=== PATIENT | male | born 1955 | race Caucasian/White ===

== ENCOUNTER 2016-11-20 16:40 | Emergency (ER) | payer OTHER ==
[~2016-11-20] VITALS: Ht 172.7 cm; Wt 72.6 kg
[~2016-11-20 16:40] MED LIST: AMLODIPINE BESYL5 M1 PO; COLACE100 M1 PO; DIAZEPAM5 M1 PO; ELIQUIS5 M1 PO; GABAPENTIN300 MG PO; HYDROCODONE/ACE1 TAB PO; HYZAAR 12.5 MG-1 TA1 PO; IBU600 MG PO; LAMICTAL100 M2 PO; LEVOTHYROXIN0.088 M1 PO; LIPITOR40 M1 PO; LORAZEPAM0.5 MG PO; MELOXICAM15 M1 PO; METFORMIN500 MG PO; MORPHINE SULFAT15 M3 PO; OLANZAPINE PO; OXYCODONE HCL10 M2 PO; PANTOPRAZOLE SO40 MG PO; PERPHENAZINE4 M1 PO; PROVENTIL HFA6.7 GM INH; SENNA8.6 M3 PO; TRAMADOL50 MG PO; VERAPAMIL HYDR240 MG PO; [UNRECOGNIZED DRUG - OTHER] PO
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
[2016-11-20 17:18] VITALS: BP 148/74
== END 2016-11-20 17:20 ==
LOC: ERH 16:40
DX: Z04.1 Encounter for examination and observation following transport accident (principal); V89.2XXA Person injured in unspecified motor-vehicle accident, traffic, initial encounter; Y92.488 Other paved roadways as the place of occurrence of the external cause